=== PATIENT | female | born 1980 | race Caucasian/White ===

== ENCOUNTER 2024-01-20 16:57 | Emergency (ER) | payer OTHER, SELFPAY ==
[2024-01-20 17:06] VITALS: BP 143/92
[2024-01-20] MEDS: NSS 1000 IV (18:04)
--- NOTE | 2024-01-20 18:09 | ED.GENMED ---
History of Present Illness
General
Chief Complaint: Fever
Source: patient
Time Seen by Provider: 01/20/24 17:29
Travel History
Have you had any contact with someone who has COVID-19?: No
Do you have any symptoms of coronavirus? Fever > 100 degrees, chills, cough, shortness of breath, sore throat, loss of taste or smell, muscle aches, or headache?: No
History of Present Illness
History of Present Illness:
43-year-old female presents emergency room complaining of pain in her left ear, redness and swelling of the left ear. Patient began feeling the symptoms about 4 days ago. She developed a fever over the past couple days. Tmax 103 at home. She has
been taking Tylenol. In addition she does have some bodyaches generalized weakness. Patient states that her symptoms began as a mild runny nose which proceeded to more yellow nasal discharge. She has had issues with sinusitis in the past.
Past History
Past History
ED Past Medical History: Other (CBD stone)
ED Past Surgical History: Cholecystectomy, and Other (gastric sleeve)
Patient has exhibited threatening behavior?: No
Social History
Tobacco: Smoker
Alcohol: None
Drug: None
Personal:
Living: with family
Employment: Employed
Family History
Family History: Other (Noncontributory)
Phy Exam
Physical Exam
Physical Exam:
General: Awake, Alert, Oriented X3. No acute distress.
Vitals: Febrile
Head: Atraumatic
Eyes: Pupils equal, EOMI
Ears: Erythema noted of the left auricle and area anterior to the left ear. The entire area is tender to palpation. Tympanic membrane in the left ear appears a bit erythematous. I can see the TM which appears whitish and perhaps bulging. There
is tenderness with manipulation of the left ear. There is no erythema over the mastoid.
Throat: Airway intact, no exudates
Neck: Trachea midline, positive shotty adenopathy
Lungs: Clear and equal b/l
Heart: Regular rate, no murmurs
Abd: Soft, Nontender, No pulsatile mass
Neuro: Cranial nerves intact, muscle strength equal bilaterally
Skin: Warm, dry, no rash
Extremities: pulses equal b/l, no edema
Course
Orders/Labs/Results
Orders:
Orders
01/20/24 17:53
0.9% Sodium Chloride 1000 ml [Nss] 1,000 ml IV BOLUS
01/20/24 18:00
Basic Metabolic Panel Urgent
Complete Blood Count/With Diff Urgent
Blood Culture Q30M
TRISTA Source: Blood/Venous
Specimen Description:
Blood Culture Q30M
TRISTA Source: Blood/Venous
Specimen Description:
01/20/24 18:17
COVID-19 Antigen Urgent
Source: Nasal Swab
Influenza A+B Rapid Molecular Urgent
TRISTA Source: Nasal Swab
Specimen Description:
01/20/24 19:11
Oxycodone [Roxicodone] 5 mg .ROUTE .STK-MED ONE
01/20/24 19:12
Oxycodone [Roxicodone] 5 mg PO NOW STA
01/20/24 19:31
Amoxicillin 875 mg/Clav 125 mg [Augmentin 875 mg/125 mg] 1 tablet PO NOW STA
Neomycin/Polymyxin/Hc [Cortisporin Otic Suspension] See Dose Instructions OTIC NOW STA
Abnormal Lab Results
01/20/24
18:00
RBC 3.74 L 10^6/uL
(4.20-5.40)
Hgb 7.5 L g/dL
(12.0-16.0)
Hct 25.4 L %
(37.0-47.0)
MCV 67.9 L fL
(81.0-99.0)
MCH 20.1 L pg
(27.0-31.0)
MCHC 29.5 L g/dL
(33.0-37.0)
RDW 20.2 H %
(11.5-14.5)
Absolute Neuts (auto) 7.0 H 10^3/uL
(1.4-6.5)
Absolute Lymphs (auto) 0.7 L 10^3/uL
(1.2-3.4)
Neutrophils % 85.4 H %
(42.2-75.2)
Lymphocytes % 8.1 L %
(20.5-51.1)
Sodium 132 L mmol/L
(135-145)
Creatinine 0.5 L mg/dL
(0.6-1.0)
Glucose 118 H mg/dl
(70-99)
01/20/24 18:00
01/20/24 18:00
Vital Signs
Initial and Last Documented VS:
Initial Vital Signs
Temp Pulse Resp BP Pulse Ox
101 F H 112 20 143/92 100
01/20/24 17:06 01/20/24 17:06 01/20/24 17:06 01/20/24 17:06 01/20/24 17:06
Last Documented Vital Signs
Temp Pulse Resp BP Pulse Ox
101 F H 112 20 143/92 100
01/20/24 17:06 01/20/24 17:06 01/20/24 17:06 01/20/24 17:06 01/20/24 17:06
MDM/Problems Addressed
Differential Diagnosis Includes:
Otitis externa, auricular cellulitis, mastoiditis
MDM/Problems Addressed:
The distribution of erythema I feel this is not mastoiditis. There is no bulging or erythema behind the auricle. The erythema seems to be most prominent anterior to the auditory canal. I suspect the patient has cellulitis which may or may not be
related to an otitis media or otitis externa. Will cover with drops. The patient appears stable. She is not diabetic. She does not take immunosuppressive medication. Therefore we will attempt oral antibiotics but I did instruct the patient to
return if no better in the next 48 hours or if she feels she is getting worse. Also given ENT information for follow-up
*Pulse Oximetry
Patient hypoxic: no
*Critical Care Note
Total Time (30-74mins, 75-104mins- exclusive of procedures): Not Applicable
ED Attending Note
-
Portions of this chart may have been created with voice recognition software.� Occasional wrong word or��sound alike� substitutions may have occurred due to the inherent limitations of voice recognition software.
Discharge Plan
Departure
Patient Disposition: Home (Routine Discharge)
Date of Disposition: 01/20/24
Time of Disposition: 19:32
Patient with high blood pressure during this ER visit?: Yes
Condition: Good
Discharge Problem:
Cellulitis of auricle of ear
Instructions: Cellulitis (Skin Infection), Adult ED
Prescriptions:
New
amoxicillin-pot clavulanate 875-125 mg tablet
1 tab PO BID Qty: 14 0RF
fluconazole 150 mg tablet
150 mg PO DAILY Qty: 1 0RF
Cortisporin-TC 3.3-3-10-0.5 mg/mL drops,suspension
4 drp otic (ear) QID Qty: 10 0RF
Rx Instructions:
4 drops left ear every 6 hours
No Action
cetirizine 10 MG tablet
10 mg PO DAILYPRN PRN (Reason: seasonal allergies)
omeprazole 40 MG capsule,delayed release(DR/EC)
40 mg PO BID
gabapentin 300 MG capsule
300 mg PO HSPRN PRN (Reason: neuropathy) Qty: 0
Patient Comments:
08/18/19 per patient she will not take flexeril if she takes this instead
sertraline 100 MG tablet
100 mg PO DAILY
calcium carbonate [Oyster Shell Calcium 500] 500 MG tablet
500 mg PO DAILY
ferrous gluconate 240 MG tablet
240 mg PO DAILY
cyclobenzaprine 5 MG tablet
5 mg PO Q8HPRN PRN (Reason: back spasms )
Patient Comments:
08/18/19 will not take if she takes gabapenten at night
multivitamin with folic acid [Tab-A-Juliann] 1 TABLET tablet
1 tab PO DAILY
melatonin 2.5 MG tablet,chewable
2.5 mg PO HSPRN PRN (Reason: insomnia)
oxycodone-acetaminophen 5 MG/325 MG tablet
1 tab PO Q6HPRN PRN (Reason: pain) Qty: 10 0RF
Referrals:
Enrrique Terry MD [Family Provider] -
Interventions
Interventions:
*Risk Screen - Suicide Last Done: 01/20/24 17:51
*General Assessment Last Done: 01/20/24 17:51
*Neglect/Abuse Screening Last Done: 01/20/24 17:51
ED- Fall Risk Assessment Last Done: 01/20/24 17:45
*ED COVID-19 Vaccine History Last Done: 01/20/24 17:45
*Nursing Disposition Last Done: 01/20/24 20:59
ED- Neurological Assessment Last Done: 01/20/24 17:45
ED-Skin Assessment Last Done: 01/20/24 17:45
Discharge Date and Time
Discharge Date/Time: 01/20/24 20:59
Print Language: CZECH
[2024-01-20 18:10] LABS: % Basophils 0.2 % (0-2); % Eosinophils 0.2 % (0-6); % Immature Granulocytes 0.2 % (0-0.5); % Lymphocytes 8.1 % (20.5-51.1); % Monocytes 5.9 % (1.7-9.3); % Neutrophils 85.4 % (42.2-75.2); Absolute Lymphocytes 0.7 10^3/uL (1.2-3.4); Absolute Monocytes 0.5 10^3/uL (0.1-0.6); Hematocrit 25.4 % (37.0-47.0); Hemoglobin 7.5 g/dL (12.0-16.0); Mean Corp Hgb Conc. 29.5 g/dL (33.0-37.0); Mean Corpuscular Hgb 20.1 pg (27.0-31.0); Mean Corpuscular Volume 67.9 fL (81.0-99.0); Nucleated Red Blood Cells % 0 %; Platelet Count 247 10^3/uL (130-400); Red Blood Cell Count 3.74 10^6/uL (4.20-5.40); Red Cell Dist. Width 20.2 % (11.5-14.5); White Blood Cell Count 8.2 10^3/uL (4.8-10.8)
[2024-01-20 18:32] LABS: Blood Urea Nitrogen 8 mg/dl (7-17); Calcium 9.3 mg/dl (8.4-10.2); Carbon Dioxide 26 mmol/L (22-30); Chloride 101 mmol/L (98-107); Glucose 118 mg/dl (70-99); Potassium 4.7 mmol/L (3.5-5.1); Sodium 132 mmol/L (135-145); eGFR > 60.00
[2024-01-20 18:40] LABS: COVID-19 Antigen Negative (Negative)
[2024-01-20] MEDS: ROXICODONE 5 MG PO (19:13)
[2024-01-20] MEDS: AUGMENTIN 875 MG/125 MG 1 TABLET PO (20:10)
[2024-01-20] MEDS: CORTISPORIN OTIC SUSPENSION 1 DROP OTIC (20:10)
== END 2024-01-20 20:59 | disposition home or self-care (01) ==
LOC: EMR 16:57
PROVIDERS: EMERGENCY PHYSICIAN Emergency Medicine; FAMILY PHYSICIAN Family Medicine
DX: H60.12 Cellulitis of left external ear (principal); R03.0 Elevated blood-pressure reading, without diagnosis of hypertension; F17.200 Nicotine dependence, unspecified, uncomplicated; Z11.52 Encounter for screening for COVID-19
CPT/HCPCS: 99284; 96360; 80048; 85025; 87040; 87502; 87811